=== PATIENT | male | born 1985 | race Two or more races ===

== ENCOUNTER 2024-05-22 22:44 | Emergency (ER) | payer MEDICAID, OTHER ==
[~2024-05-22] VITALS: Ht 182.9 cm; Wt 69.5 kg
[2024-05-22] MEDS ORDERED: ACE3T PO (23:51)
[2024-05-22] MEDS ORDERED: AMOX875T4 PO (23:51)
[2024-05-23] MEDS: KETOROLAC TROMETH 30 MG/ML 1ML VIAL IM ONE (00:12)
[2024-05-23 00:13] VITALS: BP 133/74; PULSE 56; RESP 12; TEMP 97.7; O2SAT 98
== END 2024-05-23 00:29 | disposition home or self-care (01) ==
LOC: ER 22:44
DX: K04.7 Periapical abscess without sinus (principal)
CPT/HCPCS: 96372; 99283; J1885